=== PATIENT | female | born 1990 | race Hispanic/Latino ===

== ENCOUNTER 2016-10-04 11:45 | Emergency (ER) | payer MEDICAID ==
[2016-10-04 11:47] VITALS: BMI 23.0
[2016-10-04 12:02] VITALS: BP 136/88; PULSE 83; RESP 16; TEMP 98.8; O2SAT 99
--- NOTE | 2016-10-04 12:26 | ED PDOC ---
Arrival/HPI - General Historian: Patient - General Chief Complaint: Female Genitourinary Time Seen by Provider: 10/04/16 12:03 - History of Present Illness Narrative History of Present Illness (Text): 10/04/16 12:17 Rachel is a 25 year old female with pmh significant for anemia and bilateral hydronephrosis as infant who presents complaining of irregular vaginal bleeding. The patient reports her FDLMP being 7/3 with 5-6 days of regular menstrual bleeding and cramping. The patient reports that for the past 2 weeks she has had continued spotting. She indicates that for the past two days she has had two episodes of break through bleeding with dark, clot filled blood while showering. She reports feeling light headedness and some blurry vision with standing up. She denies any syncopal episode, palpitations, fever, nausea, vomiting, or abdominal pain. She has not taken any medication since the onset of her bleeding. She denies any vaginal discharge or tearing of the vagina. She does report having a new sexual partner with increased frequency in sexual intercourse. (Jessee Ramos) Past Medical History - Provider Review Nursing Documentation Reviewed: Yes - Infectious Disease Hx of Infectious Diseases: None - Tetanus Immunization Tetanus Immunization: Unknown - Past Medical History Past Medical History: No Previous - Cardiac Hx Cardiac Disorders: No Hx Hypertension: No - Pulmonary Hx Tuberculosis: No - Neurological HX Cerebrovascular Accident: No Hx Seizures: No - Renal Other/Comment: Surg. Hx blockage kidneys and bladder - Hematological/Oncological Hx Cancer: No - Musculoskeletal/Rheumatological Hx Musculoskeletal Disorders: No - Genitourinary/Gynecological Hx Sexually Transmitted Diseases: No - Psychiatric Hx Depression: No Hx Emotional Abuse: No Hx Physical Abuse: No Hx Substance Use: No - Surgical History Hx Appendectomy: Yes - Anesthesia Hx Anesthesia Reactions: No Hx Malignant Hyperthermia: No - Suicidal Assessment Feels Threatened In Home Enviroment: No - Patient History Narrative Patient History: Anemia Bilateral Hydronephrosis as infant (Jessee Ramos) Family/Social History - Physician Review Nursing Documentation Reviewed: Yes Family/Social History: No Known Family HX Smoking Status: Current Some Days Smoker Hx Alcohol Use: No Hx Substance Use: No Amount: 5 Hx Substance Use Treatment: No Allergies/Home Meds Allergies/Adverse Reactions: Allergies No Known Allergies Allergy (Verified 10/04/16 11:59) Home Medications: Home Meds Medication Instructions Recorded Confirmed No Known Home Med 02/01/16 10/04/16 Review of Systems - Physician Review All systems were reviewed & negative as marked: Yes - Review of Systems Eyes: Vision Changes (blurry vision episodes when standing up ) Respiratory: absent: SOB Cardiovascular: absent: Chest Pain, Palpitations Gastrointestinal: absent: Abdominal Pain, Stool Changes, Hematochezia Genitourinary Female: absent: Dysuria, Frequency, Hematuria Neurological: Headache. absent: Focal Weakness Physical Exam Vital Signs Reviewed: Yes Temperature: Afebrile Blood Pressure: Normal Pulse: Regular Respiratory Rate: Normal Appearance: Positive for: Well-Appearing Pain Distress: None Mental Status: Positive for: Alert and Oriented X 3 - Systems Exam Head: Present: Atraumatic, Normocephalic Pupils: Present: PERRL Extroacular Muscles: Present: EOMI Conjunctiva: Present: Normal Mouth: Present: Moist Mucous Membranes Respiratory/Chest: Present: Clear to Auscultation, Good Air Exchange. No: Respiratory Distress, Accessory Muscle Use Cardiovascular: Present: Regular Rate and Rhythm, Normal S1, S2. No: Murmurs Abdomen: Present: Tenderness (mild tenderness lower abdominal quad b/l), Normal Bowel Sounds. No: Distention, Peritoneal Signs Upper Extremity: Present: Normal Inspection. No: Cyanosis, Edema Lower Extremity: Present: Normal Inspection. No: Edema Neurological: Present: GCS=15, CN II-XII Intact, Speech Normal Skin: Present: Warm, Dry, Normal Color. No: Rashes Psychiatric: Present: Alert, Oriented x 3, Normal Insight, Normal Concentration Medical Decision Making - Lab Interpretations I have reviewed the lab results: Yes Interpretation: All labs normal ED Course and Treatment: 10/04/16 12:39 Impression: Pt is a 25 year old female who complains of irregular vaginal bleeding for the past 2 weeks and dizzy spells when standing for the past week. Differential Diagnosis included but are not limited to: - Irregular menstrual bleeding - Anemia Plan: - CBC, Urine test - Reassess and disposition Progress Notes: 10/04/16 12:44 test negative 10/04/16 13:07 Hg and Hct within normal limits (Jessee Ramos) 10/04/16 13:18 25yo female with vaginal bleeding Preg. test negative hemodynamically stable pt states she has [facility] appt scheduled states she feels comfortable being dc'd home with outpatient f/u Patient seen and examined with resident Came up with treatment and disposition plan with resident (Denny Chisholm) - Lab Interpretations Lab Results: 10/04/16 12:38 Lab Results 10/04/16 12:38: WBC 6.6, RBC 4.23, Hgb 12.9, Hct 38.3, MCV 90.5, MCH 30.5, MCHC 33.7, RDW 13.2, Plt Count 216, MPV 11.9 H - PA / ORDER TO DELIVERY SUPERVISOR / Resident Statement / has reviewed & agrees with the documentation as recorded. / has examined the patient and agrees with the treatment plan. Disposition/Present on Arrival - Present on Arrival Any Indicators Present on Arrival: No History of DVT/PE: No History of Uncontrolled Diabetes: No Urinary Catheter: No History of Decub. Ulcer: No History Surgical Site Infection Following: None - Disposition Have Diagnosis and Disposition been Completed?: Yes Disposition Time: 13:05 Patient Plan: Discharge - Disposition Diagnosis: Irregular menstrual bleeding Disposition: HOME/ ROUTINE Condition: GOOD Additional Instructions: Rachel, thank you for letting us take care of you today. Your provider was Dr. Ramos. You were treated for irregular menstrual bleeding. The emergency medical care you received today was directed at your acute symptoms. If you were prescribed any medication, please fill it and take as directed. It may take several days for your symptoms to resolve. Return to the Emergency Department if your symptoms worsen, do not improve, or if you have any other problems. Please contact your doctor or call one of the physicians/clinics you have been referred to that are listed on the Patient Visit Information form that is included in your discharge packet. Bring any paperwork you were given at discharge with you along with any medications you are taking to your follow up visit. Our treatment cannot replace ongoing medical care by a primary care provider (PCP) outside of the emergency department. Thank you for allowing the [facility] team to be part of your care today. Follow up with your resolution manager. Referrals: Peri Montoya DO [Primary Care Provider] - Follow up with primary
[2016-10-04 12:53] LABS: HEMOGLOBIN 12.9 gm/dL (12.0-16.0); MEAN CELL VOLUME 90.5 fL (80.0-105.0); MEAN CORPUSCULAR HEMOGLOBIN 30.5 pg (25.0-35.0); MEAN CORPUSCULAR HGB CONC 33.7 g/dl (31.0-37.0); MEAN PLATELET VOLUME 11.9 fl (7.0-11.0); RBC 4.23 10^6/uL (3.5-6.1); RED CELL DISTRIBUTION WIDTH 13.2 % (11.5-14.5); WHITE BLOOD COUNT 6.6 10^3/ul (4.5-11.0)
== END 2016-10-04 13:44 | disposition home or self-care (01) ==
LOC: ED 11:45
DX: N92.6 Irregular menstruation, unspecified (principal)